=== PATIENT | female | born 1985 | race Caucasian/White ===

== ENCOUNTER 2023-08-12 16:42 | Emergency (ER) | payer BC, OTHER, SELFPAY ==
--- NOTE | ~2023-08-12 | CT_ITS ---
CT abdomen pelvis w con Ordering provider: Bia Pozo PA-C History: . difficulty urinating . Comparison: None. Technique: CT abdomen with IV and without oral contrast. Radiation reduction technique utilized. DLP is 456.98 mGy. 100 mL of Omnipaque 350 was given IV. Findings: VISUALIZED LOWER CHEST: Dependent atelectatic changes in the lungs. Patchy ectasis versus pneumonia c annot be excluded. UPPER ABDOMINAL ORGANS: Liver: Normal. Gallbladder: Normal. Spleen: Normal. Stomach/duodenum: Slightly thickened wall of the stomach. Clinical correlation advised. Pancreas: Normal. Adrenals: Normal. Kidneys: Normal. Urinary bladder: Normal. Uterus: An anterior bulge is seen in the area of the cervix of the uterus wh ich is indenting the bladder from posterior suggestive of fibroid. But a mass cannot be excluded. Thi s mass measures3.6 x 2.9 x 4.4 cm VISUALIZED BOWEL AND MESENTERY: Fecal material is seen in the colon suggestive of constipation. No ev idence of diverticulitis. Normal appendix. The bowel is otherwise normal. No free air or free fluid. No mesenteric lymphadenopathy. RETROPERITONEUM: Normal aorta. No retroperitoneal lymphadenopathy. MUSCULOSKELETAL: The superficial soft tissues are normal. Normal spine. IMPRESSION: Highly suggestive fibroid or a mass in the area of the cervix of the uterus anteriorly with no signif icant enhancement 3.6 x 2.9x 4.4 cm indenting the urinary bladder from posteriorly. Further evaluatio n is advised. This area measures Constipation. Patchy areas of atelectasis versus pneumonia in the lung bases. Reviewed, dictated and finalized at location A. IMPRESSION: Highly suggestive fibroid or a mass in the area of the cervix of the uterus ant eriorly with no significant enhancement 3.6 x 2.9x 4.4 cm indenting the urinary bladder from posteriorly. Further evaluation is advised. This area measures Constipation. Patchy areas of atelectasis versus pneumonia in the lung bases.
[2023-08-12 16:48] VITALS: BP 105/60; PULSE 84; RESP 16; TEMP 36.6; O2SAT 98
--- NOTE | 2023-08-12 17:18 | ED.FEMALEGU ---
HPI - Female Genitourinary General Chief complaint: Urogenital-Female Stated complaint: unable to urinate Time Seen by Provider: 08/12/23 17:03 Source: patient Mode of arrival: ambulatory Limitations: no limitations History of Present Illness HPI Narrative: Patient is a 37 y/o female who presents to the ED with c/o difficulty urinating. She reports having difficulty urinating for the past 2 weeks intermittently. States she has to push to urinate and is only able to dribble out small amounts of urine at a time. She was started on Bactrim by the physician at [facility] and finished this yesterday, but denies improvement. States today she has gone several hours without being able to urinate. States she has been drinking coffee and water, but does not feel the urge to urinate. She last urinated this morning at 6am and only urinated a few drops. She denies dysuria, hematuria, though does note she is currently on her menstrual cycle. Denies abdominal or back pain. Denies nausea, vomiting, fevers. Related Data Allergies Allergy/AdvReac Type Severity Reaction Status Date / Time vancomycin Allergy Redness of Verified 08/12/23 16:43 Skin morphine AdvReac Palpitation Verified 08/12/23 16:43 s Review of Systems Review of Systems: CONSTITUTIONAL: Denies fever, chills, or sweats. GASTROINTESTINAL: Denies abdominal pain, nausea, vomiting, or diarrhea. GENITOURINARY: See HPI. MUSCULOSKELETAL: Denies back pain All systems reviewed & are unremarkable except as noted in HPI and below Exam Narrative: GENERAL: Well appearing, obese with BMI of 33.0, non-toxic, in no acute distress. HEAD: Normocephalic, atraumatic. RESPIRATORY: Airway patent, respirations nonlabored. Clear to auscultation bilaterally, no rales, rhonchi, wheezing. CARDIOVASCULAR: Regular rate and rhythm without murmurs, rubs, or gallops. ABDOMINAL: Soft, no tenderness throughout abdomen, nondistended. Normoactive BS. MUSCULOSKELETAL: Moves all extremities. No gross deformities. SKIN: Warm, dry, normal color. NEURO: A&O X3. Speech clear PSYCHIATRIC: Appropriate mood and affect. Normal interaction. Course Vital Signs Vital signs: Vital Signs Temperature 97.9 F 08/12/23 16:48 Pulse Rate 84 08/12/23 16:48 Respiratory Rate 16 08/12/23 16:48 Blood Pressure 105/60 08/12/23 16:48 Pulse Oximetry 98 08/12/23 16:48 Oxygen Delivery Room Air 08/12/23 16:48 Temperature 97.9 F 08/12/23 16:48 Pulse Rate 82 08/12/23 21:10 Respiratory Rate 17 08/12/23 21:10 Blood Pressure 105/54 L 08/12/23 21:10 Pulse Oximetry 100 08/12/23 21:10 Oxygen Delivery Room Air 08/12/23 16:48 MDM - Female Genitourinary MDM Narrative Medical decision making narrative: Patient reports having several week history of intermittent difficulty urinating. Reports she has gone several hours today without urinating, though does not feel the urge to urinate. Denies abdominal or flank pain. Basic laboratory studies are unremarkable. No leukocytosis. Minimal anemia. No records to compare to. CMP unremarkable, stable kidney function, stable electrolytes. Patient was able to give a small amount of urine for sample. Urine preg negative. UA with lots of blood, trace leuk esterase, 6-10 white blood cell count. Sent for culture. will continue to treat as patient is symptomatic. Patient is currently on her menstrual cycle, likely explaining blood. CT scan of abdomen/ pelvis was obtained to rule out obstructive process. Patient had issues an IV infiltration for initial CT scan. New IV was placed. Patient was able to urinate on a separate occasion a full amount w/o issue after receiving fluids. CT scan of abdomen pelvis was obtained with contrast and showing a mass versus fibroid near the cervix, indenting on posterior bladder. I do feel this is consistent with patient's symptoms and clinical picture. Discussed lab and imaging findings with patient, close f
[2023-08-12] MEDS: SODIUM CHLORIDE 0.9% IV 1,000 ML 999 ML IV CONT (17:46)
[2023-08-12 17:54] LABS: Basophils Absolute Auto 0.1 K/mm3 (0.0-0.1); Basophils Percent Auto 0.8 % (0.2-1.2); Eosinophils Absolute Auto 0.3 K/mm3 (0-0.3); Eosinophils Percent Auto 4.8 % (0-4.4); Hematocrit 32.4 % (37.0-47.0); Hemoglobin 10.5 g/dL (12.0-15.0); Immature Granulocyte Absolute 0.01 K/mm3 (0.00-0.031); Immature Granulocyte Percent A 0.2 % (0-0.5); Lymphocytes Absolute Auto 2.43 K/mm3 (0.9-3.2); Lymphocytes Percent Auto 37.8 % (18.3-44.2); Mean Corpuscular HGB Conc 32.4 g/dl (32-36); Mean Corpuscular Hemoglobin 28.4 pg (26-34); Mean Corpuscular Volume 87.6 fl (80-100); Mean Platelet Volume 10.8 fl (7.4-10.4); Monocytes Absolute Auto 0.5 K/mm3 (0.1-0.6); Monocytes Percent Auto 7.6 % (2.6-8.5); Neutrophils Absolute Auto 3.1 K/mm3 (1.3-6.7); Neutrophils Percent Auto 48.8 % (45.5-73.1); Platelet Count Result 251 k/mm3 (150-375); Red Cell Distribution Width 16.4 % (11.5-14.5); White Blood Count 6.4 K/mm3 (4.5-10.0)
[2023-08-12 18:00] LABS: Appearance Urine Clear (Clear); Bacteria Urine None Seen /hpf; Bilirubin Urine Negative (Negative); Blood Urine 3+ (Negative); Color Urine Yellow (Yellow); Glucose Urine UA Negative (Negative); Ketones Urine Negative (Negative); Leukocyte Esterase Ur Trace LEU/UL (Negative); Nitrate Urine Negative (Negative); Non Pathogenic Casts 0-2; Protein Urine Negative (Negative); RBC Urine >100 /hpf (0-2); Specific Grav Ur 1.017 (1.001-1.035); Squamous Epithelial Cell Urine Few /hpf (Few); pH Urine 6.5 (5.0-9.0)
[2023-08-12 18:02] LABS: Add Urine Microscopic? YES
[2023-08-12 18:11] LABS: Anion Gap 8 mmol/L (4-12); Blood Urea Nitrogen 17 mg/dL (7-17); Calcium 8.6 mg/dL (8.4-10.2); Carbon Dioxide 22 mmol/L (22-30); Chloride 108 mmol/L (98-107); Estimated CRCL calculation 82 ml/min; Estimated Glomerular Filt Rate > 60; Glucose 96 mg/dL (65-110); Potassium 4.5 mmol/L (3.4-5.0); Sodium 138 mmol/L (137-145)
[2023-08-12 18:45] VITALS: BP 106/59; PULSE 77; RESP 16; O2SAT 100
[2023-08-12 18:54] LABS: Beta HCG Quantitative < 2.39 mIU/ML
[2023-08-12 21:10] VITALS: BP 105/54; PULSE 82; RESP 17; O2SAT 100
[2023-08-12 22:49] VITALS: BP 109/71; PULSE 68; RESP 17; TEMP 36.8; O2SAT 100
--- NOTE | 2023-08-12 22:49 | PC.NURSE ---
patient was able to urinate a significant amount with no issues. [facility] was called @[phone] because patient is up for discharge. they stated, be there in a few minutes
== END 2023-08-12 22:50 | disposition home or self-care (01) ==
PROVIDERS: Emergency Provider Physician Assistant
DX: R39.198 Other difficulties with micturition (principal); R82.998 Other abnormal findings in urine; D25.9 Leiomyoma of uterus, unspecified; K59.00 Constipation, unspecified
CPT/HCPCS: 36415; 74177; 80048; 81001; 84702; 85025; 87086; 87088; 96360; 99284; J7030; Q9967

== ENCOUNTER 2023-08-13 21:39 | Emergency (ER) | payer BC, OTHER, SELFPAY ==
[2023-08-13 21:41] VITALS: BP 133/74; PULSE 81; RESP 20; TEMP 36.3; O2SAT 100
--- NOTE | 2023-08-13 23:55 | PC.NURSE ---
Patient comes to desk and state my kidneys hurt, is there any way to get seen faster, I feel I need to pee but I can't. I feel I need help to pee. This RN informed patient that unfortunately there is no room available at this time, they are working as fast as they can. This RN informed patient that she will have to wait her turn but there is a bathroom in the waiting room if she needed. Patient verbalized understanding. Patient then ambulated back to her chair in the waiting room with a steady gait.
[2023-08-14 00:22] VITALS: BP 130/75; PULSE 65; RESP 16; O2SAT 94
[2023-08-14 00:48] LABS: Appearance Urine Clear (Clear); Bilirubin Urine Negative (Negative); Blood Urine Negative (Negative); Color Urine Yellow (Yellow); Glucose Urine UA Negative (Negative); Ketones Urine Negative (Negative); Leukocyte Esterase Ur Negative LEU/UL (Negative); Nitrate Urine Negative (Negative); Protein Urine Negative (Negative); Specific Grav Ur 1.011 (1.001-1.035); Urobilinogen Urine 0.2 mg/dL (<2.0)
[2023-08-14 00:54] LABS: Add Urine Microscopic? NO
--- NOTE | 2023-08-14 01:16 | ED.FEMALEGU ---
HPI - Female Genitourinary General Chief complaint: Urogenital-Female Stated complaint: unable to urinate Time Seen by Provider: 08/14/23 00:27 History of Present Illness HPI Narrative: 37-year-old female presents to the emergency department for urinary retention. She states she has been having difficulty urinating for approximately 2 weeks. She was seen in our emergency department yesterday and had a workup in CT abdomen pelvis which showed a large uterine mass that appeared to be a fibroid that was indenting on to the bladder and likely causing patient's difficulty through urination. She was advised to come back to the ED if she was unable to urinate. She states today she was unable to void her bladder, however when she would stand up she would of trickle of urine down her legs. States since 3:00 p.m. she has not had any output from her bladder with some suprapubic discomfort. Denies fever, nausea vomiting, dysuria or hematuria. patient states she currently resides at [facility] but believes she may have to go to [facility]. She states she has not had the opportunity to call the OBGYN that she was referred to yesterday. States she is not from this area and plans to go to [place] when she is released from [place]. Related Data Allergies Allergy/AdvReac Type Severity Reaction Status Date / Time vancomycin Allergy Redness of Verified 08/13/23 21:43 Skin morphine AdvReac Palpitation Verified 08/13/23 21:43 s Review of Systems Review of Systems: CONSTITUTIONAL: Denies fever, chills, or sweats. EYES: Denies visual changes, redness, or discharge. ENT: Denies rhinorrhea, congestion, sore throat, or otalgia. CARDIOVASCULAR: Denies chest pain, palpitations, or edema. RESPIRATORY: Denies cough or dyspnea. GASTROINTESTINAL: see HPI GENITOURINARY: See HPI SKIN: Denies rash or itching. MUSCULOSKELETAL: Denies back pain, joint pain, or myalgia. NEUROLOGIC: Denies headache, numbness, or weakness. PSYCHIATRIC: Denies anxiety or depression. Exam Narrative: GENERAL: Well-appearing, well-nourished, and in no acute distress. HEAD: Normocephalic, atraumatic. EYES: PERRLA and EOMI. ENT: Nares clear, no rhinorrhea or epistaxis. Mucous membranes moist. NECK: Supple. CHEST: Clear to auscultation. No respiratory distress. HEART: Regular rate and rhythm. No murmur heard. Normal peripheral pulses. ABDOMEN: Soft, nontender, nondistended, normal active bowel sounds. No rebound, guarding or rigidity. No CVA tenderness. EXTREMITIES: Normal range of motion. No edema. SKIN: Warm, dry, no rash. NEURO: No focal deficits. Alert and oriented x3 Course Vital Signs Vital signs: Vital Signs Temperature 97.3 F L 08/13/23 21:41 Pulse Rate 81 08/13/23 21:41 Respiratory Rate 20 08/13/23 21:41 Blood Pressure 133/74 08/13/23 21:41 Pulse Oximetry 100 08/13/23 21:41 Oxygen Delivery Room Air 08/13/23 21:41 Temperature 97.3 F L 08/13/23 21:41 Pulse Rate 65 08/14/23 00:22 Respiratory Rate 16 08/14/23 00:22 Blood Pressure 130/75 08/14/23 00:22 Pulse Oximetry 94 08/14/23 00:22 Oxygen Delivery Room Air 08/13/23 21:41 MDM - Female Genitourinary MDM Narrative Medical decision making narrative: 37-year-old female presents to the emergency department for urinary retention for the past 2 weeks, worse today. Triage vitals stable. She was seen in our emergency department for similar symptoms yesterday and was found have a fibroid or mass in the area of the cervix indenting on the urinary bladder posteriorly which shows likely to be the source of her symptoms. Today her retention became worse and she has not had any urinary output since 3:00 p.m. this evening. On evaluation her bladder scan showed 543 cc of urine. Archuleta catheter was placed draining clear yellow fluid with good output. UA is without infection. was negative as of yesterday, she is currently on her menstrual Cycle a
--- NOTE | 2023-08-14 01:33 | PC.NURSE ---
Upon discharge patient was upset and states Is there a hospital you gerald can tell me about so I can get this problem fixed? Patient was educated that a urologist is listed in her discharge paperwork and she needs to follow up. Patient then states well yesterday you gerald gave me a OBGYN to follow up with so why this? Patient was educated that yesterdays visit was a gynecological visit and today is urology visit and she needs to follow up with each for each separate reason. Patient still upset and only allowed staff to verbally educate her on how to swab out leg bag for olivo bag. Patient still upset when leaving room after signing discharge paperwork.
== END 2023-08-14 01:36 | disposition home or self-care (01) ==
PROVIDERS: Emergency Provider Physician Assistant
DX: R33.9 Retention of urine, unspecified (principal)
CPT/HCPCS: 51702; 81003; 81025; 99283